=== PATIENT | male | born 1985 | race Caucasian/White ===

== ENCOUNTER 2021-10-06 23:29 | Emergency (ER) | payer MEDICAID ==
[~2021-10-06] VITALS: Ht 190.5 cm; Wt 72.6 kg
[2021-10-06 23:29] VITALS: BP 178/102
[2021-10-07] MEDS ORDERED: KETOROLAC TROMETH 60MG/2ML VIAL IM ONE (02:15)
== END 2021-10-07 02:25 | disposition home or self-care (01) ==
LOC: ER 23:29
DX: S93.402A Sprain of unspecified ligament of left ankle, initial encounter (principal); F17.210 Nicotine dependence, cigarettes, uncomplicated; W06.XXXA Fall from bed, initial encounter; Y93.89 Activity, other specified; Y92.89 Other specified places as the place of occurrence of the external cause; Y99.8 Other external cause status
CPT/HCPCS: 73610; 73630; 96372; 99284; J1885

== ENCOUNTER 2022-04-17 12:17 | Emergency (ER) | payer MEDICAID ==
[~2022-04-17] VITALS: Ht 172.7 cm; Wt 68.1 kg
[2022-04-17] MEDS ORDERED: cloNIDine HCL 0.1 MG TAB PO ONE (12:45)
[2022-04-17 13:59] LABS: Albumin 4.4 g/dL (3.4-5.0); BUN/Creatinine Ratio 9.7; Calcium 9.3 mg/dL (8.5-10.1); Magnesium 2.5 mg/dL (1.6-2.6); Potassium 3.8 mmol/L (3.5-5.1)
[2022-04-17 14:02] LABS: Bilirubin, Total 0.4 mg/dL (0.2-1.0)
[2022-04-17 14:24] LABS: INR 1.03 (0.9-1.15); Partial Thromboplastin Time 33.6 sec (24.6-33.4)
[2022-04-17 15:33] LABS: Basophils # (auto) 0 10 ^3/uL (0-0.2); Basophils % (auto) 0.7 % (0.0-2.0); Eosinophils # (auto) 0.1 10 ^3/uL (0-0.8); Eosinophils % (auto) 0.9 % (0.0-7.0); Hematocrit 49.6 % (41.0-53.0); Hemoglobin 17.2 g/dL (13.5-17.5); Lymphocytes # (auto) 0.2 10 ^3/uL (0.4-5.4); Lymphocytes % (auto) 3.6 % (10.0-50.0); Mean Corpuscular Hgb Conc. 34.6 g/dL (32.0-36.0); Mean Corpuscular Volume 86.5 fL (80.0-100.0); Monocytes # (auto) 0.8 10 ^3/uL (0-1.3); Monocytes % (auto) 13.3 % (0.0-12.0); Neutrophils # (auto) 5.1 10 ^3/uL (1.6-8.6); Neutrophils % (auto) 81.5 % (37.0-80.0); Nucleated Red Blood Cells % 0.8 %; Red Blood Cells 5.74 10^6/uL (4.5-5.90); Red Cell Distribution Width 13.5 % (11.8-14.3); White Blood Cell 6.2 10^3/uL (4.4-10.8)
[2022-04-17] MEDS ORDERED: LOSA100T25 PO (15:53)
[2022-04-17 20:04] VITALS: BP 136/110
== END 2022-04-17 18:30 | disposition home or self-care (01) ==
LOC: EDBD 12:17 → ER 12:17
DX: I16.0 Hypertensive urgency (principal); F17.210 Nicotine dependence, cigarettes, uncomplicated; Z79.899 Other long term (current) drug therapy
CPT/HCPCS: 36415; 70450; 80053; 83735; 85025; 85610; 85730

== ENCOUNTER 2023-10-29 21:57 | Emergency (ER) | payer MEDICAID ==
[~2023-10-29] VITALS: Ht 190.5 cm; Wt 80.0 kg
[~2023-10-29 21:57] MED LIST: LOSA100T25 PO
[2023-10-30 01:31] LABS: Basophils # (auto) 0.1 10 ^3/uL (0-0.2); Eosinophils # (auto) 1.2 10 ^3/uL (0-0.8); Lymphocytes # (auto) 1.9 10 ^3/uL (0.4-5.4); Mean Corpuscular Hgb Conc. 35.1 g/dL (32.0-36.0); Red Cell Distribution Width 13.2 % (11.8-14.3); White Blood Cell 8.4 10^3/uL (4.4-10.8)
[2023-10-30 01:33] LABS: Basophils % (auto) 1.1 % (0.0-2.0); Eosinophils % (auto) 14.2 % (0.0-7.0); Hematocrit 51.1 % (41.0-53.0); Hemoglobin 17.9 g/dL (13.5-17.5); Lymphocytes % (auto) 22.2 % (10.0-50.0); Mean Corpuscular Hemoglobin 31.2 pg (28.0-32.0); Mean Corpuscular Volume 89.1 fL (80.0-100.0); Monocytes # (auto) 0.6 10 ^3/uL (0-1.3); Monocytes % (auto) 7.4 % (0.0-12.0); Neutrophils # (auto) 4.6 10 ^3/uL (1.6-8.6); Neutrophils % (auto) 55.1 % (37.0-80.0); Nucleated Red Blood Cells % 0.4 %; Red Blood Cells 5.73 10^6/uL (4.5-5.90)
[2023-10-30 01:48] LABS: Acetaminophen < 2.0 UG/ML (10.0-20.0)
[2023-10-30 01:49] LABS: Alkaline Phosphatase 73 U/L (46-116); Anion Gap 8 (5-15); Aspartate Aminotransferase < 8 U/L (13-40); BUN/Creatinine Ratio 7.5 (10.0-20.0); Bilirubin, Total 0.5 mg/dL (0.2-1.0); Blood Urea Nitrogen 20 mg/dL (9-23); Calcium 10.2 mg/dL (8.7-10.4); Carbon Dioxide 19 mmol/L (20-30); Chloride 112 mmol/L (98-107); Glucose 88 mg/dL (74-106); Potassium 3.6 mmol/L (3.5-5.1); Sodium 139 mmol/L (136-145); Total Protein 7.6 g/dL (5.7-8.2)
[2023-10-30 02:07] LABS: Alanine Aminotransferase 9 U/L (7-40); Salicylate < 3.0 mg/dL (2.8-20.0)
[2023-10-30 02:19] LABS: Blood Alcohol < 3.0 mg/dL (<10)
[2023-10-30] MEDS: cloNIDine HCL 0.1 MG TAB PO ONE ×3 (03:24→18:42)
[2023-10-30] MEDS: ACETAMINOPHEN 325 MG TAB PO ONE (03:30)
[2023-10-30 04:23] LABS: Urine Bacteria None Seen /hpf (None Seen)
[2023-10-30 04:48] LABS: Amphetamine Screen, Urine Neg (NEGATIVE); Barbiturate Scree,Urine Neg (NEGATIVE); Benzodiazephine Screen, Urine Neg (NEGATIVE); Cannabinoid Screen, Urine Neg (NEGATIVE); Cocaine Screen, Urine Neg (NEGATIVE); Opiate Scree,Urine Neg (NEGATIVE); Phencyclidine Screen, Urine Neg (NEGATIVE)
[2023-10-30 05:03] LABS: Urine Blood TRACE /uL (Negative); Urine Clarity Clear (Clear); Urine Color Light-Yellow (Yellow); Urine Protein, UAD Negative (Negative); Urine Specific Gravity 1.012 (1.001-1.035); Urine Urobilinogen Normal (Negative); Urine WBC 2 /hpf (0 - 3); Urine pH 5.5 (5.0-9.0)
[2023-10-30 14:00] VITALS: PULSE 59; RESP 16; O2SAT 98
[2023-10-30] MEDS: CITALOPRAM HYDROBR 20 MG TAB PO SCH (14:45)
[2023-10-30 19:45] VITALS: PULSE 62; RESP 16; O2SAT 98
[2023-10-31] MEDS ORDERED: CITALOPRAM HYDROBR 20 MG TAB PO SCH (07:00)
[2023-10-31] MEDS: cloNIDine HCL 0.1 MG TAB PO ONE ×2 (10:35→14:24)
[2023-10-31] MEDS: cloNIDine HCL 0.1 MG TAB ONE (10:35)
[2023-10-31 14:10] VITALS: BP 186/120; PULSE 97; RESP 16; TEMP 98.2; O2SAT 99
== END 2023-10-31 16:46 | disposition short-term general hospital (02) ==
LOC: EDBD 21:57 → ER 21:57
DX: R45.851 Suicidal ideations (principal); F32.9 Major depressive disorder, single episode, unspecified; F41.1 Generalized anxiety disorder; F17.210 Nicotine dependence, cigarettes, uncomplicated; F12.90 Cannabis use, unspecified, uncomplicated
CPT/HCPCS: 36415; 80053; 80307; 80320; 80329; 81001; 85025; 93005